=== PATIENT | male | born 1960 | race Caucasian/White ===

== ENCOUNTER 2024-07-25 18:52 | Emergency (ER) | payer OTHER, SELFPAY ==
[2024-07-25 18:52] VITALS: BP 195/107; PULSE 91; RESP 18; TEMP 37.2; O2SAT 93
--- NOTE | 2024-07-25 19:05 | PC.NURSE ---
DR BOYKIN AT THE BEDSIDE
--- NOTE | 2024-07-25 19:10 | ED_ITS ---
HPI - Dental/Oral General Chief complaint: Dental/Oral Stated complaint: dental pain Time Seen by Provider: 07/25/24 18:53 Source: patient Mode of arrival: EMS Limitations: intoxication ( Alcohol) History of Present Illness HPI Narrative: patient is a 63-year-old homeless male with alcoholism and current intoxication here for dental pain. He called EMS for dental pain this evening. No other complaints in the emergency room. MD Complaint: tooth pain Location: Tooth # (28) Onset (ago): day(s) ( 1) Duration: constant Severity: moderate Severity scale (1-10): 7 Relieving factors: nothing Exacerbating factors: chewing, cold, heat and drinking fluids Context: history of dental caries and poor dental care Associated symptoms: other ( none) Treatment prior to arrival: none Related Data Allergies Allergy/AdvReac Type Severity Reaction Status Date / Time No Known Allergies Allergy Verified 07/25/24 19:10 Review of Systems Review of Systems: All systems reviewed & are unremarkable except as noted in HPI and below Constitutional: Constitutional: Reports no additional constitutional complaints Eyes: Eyes: Reports no additional eye complaints ENT: Reports system reviewed and no additional complaints, except as documented Cardiovascular: Cardiovascular: Reports no additional cardiovascular complaints Respiratory: Respiratory: Reports no additional respiratory complaints Gastrointestinal: Gastrointestinal: Reports no additional gastrointestinal complaints Genitourinary: Genitourinary: Reports no additional male genitourinary complaints Musculoskeletal: Musculoskeletal: Reports no additional musculoskeletal complaints Integumentary/Breasts: Skin/Breast: Reports system reviewed and no additional complaints, except as docu Neurologic: Reports system reviewed and no additional complaints, except as documented Psychiatric: Psychiatric: Reports no additional psychiatric complaints Endocrine: Endocrine: Reports no additional endocrine complaints Hematologic/Lymphatic: Hematologic/Lymphatic: Reports no additional hematologic/lymphatic complaints Allergic/Immunologic: Allergic/Immunologic: Reports no additional allergic/immunologic complaints Exam Const: General: no acute distress Nutritional Appearance: well nourished Orientation/consciousness: patient oriented x3 Limitations: other limitations ( alcohol intoxication) HENMT: Head: normal to inspection Ears: external ears normal Face/Nose/Sinus: Normal external nose present Other: tooth number 28 has decay and fractures with local gingivitis; many missing teeth throughout the oral cavity; poor dental care Eyes: Conjunctivae: conjunctivae normal Pupils: Equal, round and reactive pupils present EOM: EOMs intact bilaterally Neck: Neck: normal visual inspection Resp: Effort & Inspection: normal respiratory effort and not labored Auscultation: clear to auscultation bilaterally and no crackles Cardio: Rate: regular rate Rhythm: regular rhythm Heart sounds: no murmurs GI: Inspection: non-distended GI Palp: Yes Soft to palpation and No Tenderness to palpation present (GI) Auscultation: normal bowel sounds Back/Spine/Pelvis: Back: no CVA tenderness Skin: General skin exam: normal color Rashes: no rashes Wounds: no wounds Neuro: General: patient oriented x3, moves all extremities, no meningeal signs, no focal motor deficits and CN's II-XI intact bilaterally Cranial nerves: Yes Nystagmus not present Speech: Abnormal speech present ( slightly slurred with intoxication) Extrem: General: normal to inspection Psych: Other: patient was belligerent upon arrival but started to calm down during his visit and able to get a history and physical and deliver medication Course Vital Signs Vital signs: Vital Signs Temperature 37.2 C 07/25/24 18:52 Pulse Rate 91 07/25/24 18:52 Respiratory Rate 18 07/25/24 18:52 Blood Pressure 195/107 H 07/25/24 18:52 Pulse Oximetry 93 07/25/24 18:52 Oxygen Delivery Room Air 07/25/24 18:52 Temperature 37.2 C 07/25/24 18:52 Pulse Rate 91 07/25/24 18:52 Respiratory Rate 18 07/25/24 18:52 Blood Pressure 195/107 H 07/25/24 18:52 Pulse Oximetry 93 07/25/24 18:52 Oxygen Delivery Room Air 07/25/24 18:52 MDM - Dental/Oral MDM Narrative Medical decision making narrative: patient is a 63-year-old male with alcohol intoxication and dental pain via EMS. We will do Augmentin and Tylenol. Patient will stay with us for little bit while intoxicated to assure that he can walk out the door. Discharge Plan Discharge Clinical Impression: Mandible pain Patient Disposition: Home Condition: Stable Instructions: Antibiotic Form, Toothache (ED) Additional Instructions: Please see a dentist as soon as possible. Please consider AA for further alcoholic assistance. Patient Language: Green[place]ic Prescriptions: New amoxicillin-pot clavulanate [Augmentin] 500-125 mg tablet 1 tablet PO BID 10 Days Qty: 20 0RF Follow-up/Referrals: UNKNOWN,DOCTOR [Primary Care Provider] - Time of Disposition: 19:25
[2024-07-25] MEDS: ACETAMINOPHEN 325 MG TABLET 650 MG PO (19:17)
[2024-07-25] MEDS: AMOXICILLIN/CLAVULANATE K 500-125 MG TAB 1 TABLET PO (19:18)
--- NOTE | 2024-07-25 20:51 | PC.NURSE ---
PATIENT AMBULATED TO BATHROOM AND BACK TO ROOM. STEADY GAIT'
--- NOTE | 2024-07-25 21:04 | PC.NURSE ---
PATIENT REQUESTED FOOD TO EAT. SANDWICH, CHIPS AND SODA WAS GIVEN
[2024-07-25 21:51] VITALS: BP 182/94; PULSE 88; RESP 18; O2SAT 96
== END 2024-07-25 21:51 | disposition home or self-care (01) ==
PROVIDERS: Emergency Provider Emergency Medicine
DX: R68.84 Jaw pain (principal)
CPT/HCPCS: 99283; A9270